=== PATIENT | female | born 1975 | race Caucasian/White ===

== ENCOUNTER 2017-11-30 09:49 | Emergency (ER) | payer MEDICAID ==
[~2017-11-30] VITALS: Ht 152.4 cm; Wt 72.7 kg
[2017-11-30 10:33] VITALS: BP 130/78
== END 2017-11-30 11:52 | disposition home or self-care (01) ==
LOC: EMS 09:51
DX: J06.9 Acute upper respiratory infection, unspecified (principal); J02.9 Acute pharyngitis, unspecified
CPT/HCPCS: 99282